=== PATIENT | female | born 1950 | race Caucasian/White ===

== ENCOUNTER 2018-09-07 15:00 | Inpatient (IN) | payer OTHER ==
[~2018-09-07] VITALS: Ht 154.9 cm; Wt 89.4 kg
[2018-09-07 15:08] VITALS: BP 135/85
--- NOTE | 2018-09-07 15:13 | NUR ---
TO LOBBY A/W BED VIA WC, MOE NOTED
--- NOTE | 2018-09-07 15:51 | NUR ---
PATIENT CAME IN ON WHEELCHAIR TO BED 6
--- NOTE | 2018-09-07 16:35 | NUR ---
PATIENT PRESENTS TO ED WITH BROUGHT IN BY FAMILY C/O NAUSEA, HEADACHE, DIZZINESS X YESTERDAY UNABLE TO VOID SINCE THIS AM FULL CLEAR SPEECH, NO FACIAL ASYMMETRY, MOVING ALL EXTREMITIES EQUALLY . SKIN IS PINK/WARM/DRY; AAOX4 WITH EVEN AND STEADY GAIT; LUNGS CLEAR BL; HR EVEN AND REGULAR; ; PATIENT STATES PAIN OF 0/10 AT THIS TIME; VSS; PATIENT POSITIONED FOR COMFORT; HOB ELEVATED; BEDRAILS UP X2; BED DOWN. ER MD MADE AWARE OF PT STATUS.
[2018-09-07] MEDS ORDERED: NACL 0.9% 1,000 ML IV ONE (16:50)
[2018-09-07] MEDS ORDERED: ONDANSETRON 4 MG/2 ML VIAL IVP ONE (16:50)
[2018-09-07] MEDS ORDERED: MECLIZINE 25 MG TAB PO ONE (16:50)
[2018-09-07] MEDS ORDERED: NACL 0.9% 1,000 ML IV SCH (16:50)
[2018-09-07] MEDS ORDERED: FAMOTIDINE 20 MG/2 ML VIAL IVP ONE (16:50)
--- NOTE | 2018-09-07 16:58 | NUR ---
PT TO CT VIA [facility]
[2018-09-07 17:28] LABS: BASOPHILS % (AUTO) 0.4 % (0.0-2.0); EOSINOPHILS % (AUTO) 0.3 % (0.0-4.0); HEMATOCRIT 39.1 % (36-48); HEMOGLOBIN 12.8 g/dL (12.0-16.0); LYMPHOCYTES # (AUTO) 0.5 K/uL (2.5-16.5); LYMPHOCYTES % (AUTO) 4.7 % (20.5-51.1); MEAN CORPUSCULAR HEMOGLOBIN 29 pg (27-31); MEAN CORPUSCULAR HGB CONC 33 g/dL (33-37); MEAN CORPUSCULAR VOLUME 89.4 fL (80-94); MONOCYTES # (AUTO) 0.3 K/uL (0.8-1.0); MONOCYTES % (AUTO) 2.3 % (1.7-9.3); NEUTROPHILS % (AUTO) 92.3 % (42.2-75.2); PLATELET COUNT (AUTO) 281 K/uL (140-450); RED BLOOD CELL COUNT(AUTO) 4.38 MIL/uL (4.20-5.40); WHITE BLOOD COUNT (AUTO) 10.9 K/uL (4.8-10.8)
[2018-09-07 17:39] LABS: ANION GAP 4.4 (8-16); CARBON DIOXIDE 30.9 mmol/L (21-32); CREATININE 0.8 mg/dL (0.6-1.3); POTASSIUM 4.3 mmol/L (3.5-5.1)
[2018-09-07 17:45] LABS: ALBUMIN 3.7 g/dL (3.4-5.0); TOTAL BILIRUBIN 0.3 mg/dL (0.0-1.0)
[2018-09-07 17:53] LABS: PROTHROMBIN TIME 9.9 secs (10.8-13.4)
--- NOTE | 2018-09-07 18:18 | NUR ---
BEDSIDE ULTRASOUND COMPLETED
[2018-09-07 18:51] LABS: APPEARANCE,URINE CLEAR (CLEAR); BILIRUBIN,URINE NEGATIVE (NEGATIVE); BLOOD, URINE NEGATIVE (NEGATIVE); COLOR,URINE YELLOW (YELLOW); LEUKOCYTE ESTERASE ,URINE 1+ (NEGATIVE); NITRITE, URINE NEGATIVE (NEGATIVE); UGLUCOSE NEGATIVE (NEGATIVE)
[2018-09-07 18:57] LABS: RBC,URINE 0-5 (RARE) /HPF (0-5); WBC,URINE 6-15 (FEW) /HPF (0-5)
[2018-09-07] MEDS ORDERED: PIPERACILLIN/TAZOBACTAM 3.375 GM in DEXTROSE 5% 50 ML IV ONE (19:05)
[2018-09-07] MEDS ORDERED: PIPERACILLIN/TAZOBACTAM 3.375 GM VIAL IV ONE (19:14)
[2018-09-07] MEDS ORDERED: MORPHINE SULFATE 2 MG/ML SYR IVP PRN (19:35)
[2018-09-07] MEDS ORDERED: DOCUSATE SODIUM 100 MG GELCAP PO PRN (19:35)
[2018-09-07] MEDS ORDERED: LORazepam 2 MG/ML VIAL IM/IVP PRN (19:35)
[2018-09-07] MEDS ORDERED: ACETAMINOPHEN 325 MG TAB PO PRN (19:35)
--- NOTE | 2018-09-07 19:39 | NUR ---
LAB AT BEDSIDE
[2018-09-07 20:00] VITALS: BP 122/66
[2018-09-07 20:00] LABS: ACETONE, SERUM NEGATIVE (NEGATIVE)
--- NOTE | 2018-09-07 20:00 | NUR ---
REPORT RECEIVED FROM ED NURSE AT BEDSIDE. PT IN STABLE CONDITION. AAOX4. INTRODUCED SELF TO FAMILY. NO COMPLAINTS OF PAIN. NO SOB. AFEBRILE. IV SITE L AC RUNNING NS@100ML/HR PATENT AND INTACT. SKIN WARM, DRY, AND INTACT WITH NO OPEN WOUNDS BUT MULTIPLE BRUISING ON HER BACK AND BACK OF THE L ARM. BED LOCKED IN LOW POSITION. CALL WILLIS WITHIN REACH. SAFETY PRECAUTIONS IN PLACE.
--- NOTE | 2018-09-07 20:00 | NUR ---
Patient will be admitted to care of DR THOMPSON. Admited to TELE. Will go to room 121-A. Belongings list completed. Report to SOPHIE CROW.
[2018-09-07 20:07] LABS: MAGNESIUM 1.9 mg/dL (1.8-2.4)
[2018-09-07 20:14] LABS: PROTHROMBIN TIME 9.6 secs (10.8-13.4)
[2018-09-07 20:37] LABS: BARBITURATE, URINE NEG. ng/ml (NEG <=200); BENZODIAZEPINE, URINE NEG. ng/mL (NEG <=200); CANNABINOID, URINE NEG. ng/mL (NEG <=50); COCAINE, URINE NEG. ng/mL (NEG <=300); OPIATE, URINE NEG. ng/mL (NEG <=2000); PHENCYCLIDINE SCREEN,URINE NEG. ng/mL (NEG <=25)
[2018-09-07 21:01] LABS: PHOSPHORUS 3.1 mg/dL (2.5-4.9); THYROID STIMULATING HORMONE 0.58 uIU/mL (0.34-3.74)
[2018-09-07] MEDS ORDERED: MECLIZINE 25 MG TAB PO PRN (21:15)
[2018-09-07] MEDS ORDERED: FURO-572 PO (21:20)
[2018-09-07] MEDS ORDERED: SINE25 PO (21:20)
[2018-09-07] MEDS ORDERED: HYDR-3293 PO (21:20)
[2018-09-07] MEDS ORDERED: LEVO0.1331 PO (21:20)
[2018-09-07] MEDS ORDERED: TRAM50TA1 PO (21:20)
[2018-09-07] MEDS ORDERED: VENL225T PO (21:20)
[2018-09-07] MEDS ORDERED: cefTRIAXone 1,000 MG VIAL ONE (21:48)
[2018-09-07] MEDS: NACL 0.9% 1,000 ML IV SCH (22:10)
--- NOTE | 2018-09-07 22:10 | NUR ---
[facility]INMA[facility] ROBERT AND RUNNING.
[2018-09-07] MEDS: HYDROcodone/APAP 5/325 MG 1 TAB TAB PO PRN (22:15)
[2018-09-07] MEDS: ONDANSETRON 4 MG/2 ML VIAL IM/IVP PRN (22:15)
--- NOTE | 2018-09-07 22:15 | NUR ---
ZOFRAN GIVEN IVP. NORCO GIVEN FOR 6/10 PAIN AND COLACE GIVEN PO. PT TOLERATED WELL.
[2018-09-08] VITALS: BP 107/82
--- NOTE | 2018-09-08 | NUR ---
VS STABLE. PT AWAKE TO AMBULATE WITH ASSIST TO THE RESTROOM.
--- NOTE | 2018-09-08 00:10 | NUR ---
ORTHOSTATIC BLOOD PRESSURES 103/88 STANDING. 108/74 SITTING. 104/65 LAYING.
--- NOTE | 2018-09-08 01:45 | NUR ---
PT SLEEPING COMFORTABLY SUPINE. NO S/S OF DISTRESS NOTED. WILL CONTINUE TO MONITOR.
--- NOTE | 2018-09-08 03:00 | NUR ---
PT SLEEPING COMFORTABLY. NO S/S OF DISTRESS NOTED. WILL CONTINUE TO MONITOR.
[2018-09-08 04:00] VITALS: BP 138/78
--- NOTE | 2018-09-08 04:30 | NUR ---
PT SLEEPING COMFORTABLY BUT AROUSABLE. NO S/S OF DISTRESS NOTED. NO COMPLAINTS OF PAIN. NO SOB. AFEBRILE. WILL CONTINUE TO MONITOR.
[2018-09-08] MEDS: NACL 0.9% 1,000 ML IV SCH ×3 (05:31→21:00)
[2018-09-08] MEDS: LEVOTHYROXINE 0.112 MG, LEVOTHYROXINE 0.025 MG PO SCH ×2 (06:34)
--- NOTE | 2018-09-08 06:34 | NUR ---
SYNTHROID GIVEN PO. PT TOLERATED WELL.
--- NOTE | 2018-09-08 07:15 | NUR ---
REPORT GIVEN TO AM NURSE AT BEDSIDE. PT IN STABLE CONDITION.
[2018-09-08 07:24] LABS: BASOPHILS % (AUTO) 0.4 % (0.0-2.0); EOSINOPHILS # (AUTO) 0.2 K/uL (0-0.4); EOSINOPHILS % (AUTO) 3.3 % (0.0-4.0); HEMATOCRIT 36.2 % (36-48); HEMOGLOBIN 11.9 g/dL (12.0-16.0); LYMPHOCYTES # (AUTO) 1.3 K/uL (2.5-16.5); LYMPHOCYTES % (AUTO) 20.8 % (20.5-51.1); MEAN CORPUSCULAR HEMOGLOBIN 30 pg (27-31); MEAN CORPUSCULAR HGB CONC 33 g/dL (33-37); MEAN CORPUSCULAR VOLUME 90.1 fL (80-94); MONOCYTES # (AUTO) 0.4 K/uL (0.8-1.0); NEUTROPHILS # (AUTO) 4.4 K/uL (1.8-7.7); NEUTROPHILS % (AUTO) 68.5 % (42.2-75.2); PLATELET COUNT (AUTO) 270 K/uL (140-450); RED BLOOD CELL COUNT(AUTO) 4.02 MIL/uL (4.20-5.40); RED CELL DISTRIBUTION WIDTH 15.4 % (11.6-13.7); WHITE BLOOD COUNT (AUTO) 6.4 K/uL (4.8-10.8)
--- NOTE | 2018-09-08 07:25 | NUR ---
RECEIVED PT REPORT FROM BOX PRESS OPERATOR NURSE. PT IS ASLEEP, NO S/S OF DISTRESS OR SOB. PT IS ON ROOM AIR, SKIN IS INTACT, BUT HAS MULTIPLE BRUISES AND BACK AND LUE DUE TO FALLS AT HOME. IV SITE NOTED ON LAC, 20 G, INFUSING NS 100 ML/HR. FALL PRECAUTIONS IN PLACE. CALL LIGHT WITHIN REACH. WILL CONTINUE TO MONITOR PT.
[2018-09-08 08:00] VITALS: BP 128/66
--- NOTE | 2018-09-08 08:08 | NUR ---
PATIENT HAS BEEN SCREENED AND CATEGORIZED MODERATE NUTRITION RISK. PATIENT WILL BE SEEN WITHIN 3-5 DAYS OF ADMISSION. 09/10/18[address]
[2018-09-08 08:15] LABS: ANION GAP 8.6 (8-16); CARBON DIOXIDE 27.7 mmol/L (21-32); CREATININE 0.6 mg/dL (0.6-1.3); POTASSIUM 4.3 mmol/L (3.5-5.1)
[2018-09-08 08:22] LABS: MAGNESIUM 2.1 mg/dL (1.8-2.4); PHOSPHORUS 3.6 mg/dL (2.5-4.9)
[2018-09-08 08:29] LABS: CHOL/HDL RATIO 2.7 (1-4.5)
[2018-09-08] MEDS ORDERED: NON-FORMULARY ITEM (Losartan/Hydrochlorothiazide (Losartan-Hctz 50-12.5 mg Tab) 1 TAB) PO SCH (09:00)
[2018-09-08] MEDS ORDERED: NON-FORMULARY ITEM (Levothyroxine Sodium* (Synthroid*) 0.137 MG) PO SCH (09:00)
[2018-09-08] MEDS ORDERED: VENLAFAXINE HCL PO SCH (09:00)
[2018-09-08] MEDS: FUROSEMIDE 20 MG TAB PO SCH (09:00)
[2018-09-08] MEDS: LOSARTAN 50 MG TAB PO SCH (10:05)
[2018-09-08] MEDS: HYDROCHLOROTHIAZIDE 25 MG TAB PO SCH (10:06)
[2018-09-08] MEDS: LACTOBACILLUS RHAMNOSUS GG 1 EACH CAP PO SCH (10:06)
[2018-09-08 12:00] VITALS: BP 132/74
[2018-09-08 16:00] VITALS: BP 112/80
[2018-09-08 16:15] LABS: ANION GAP 7.1 (8-16); CARBON DIOXIDE 26.9 mmol/L (21-32); CREATININE 0.9 mg/dL (0.6-1.3)
--- NOTE | 2018-09-08 16:54 | NUR ---
PT VISITING WITH HER . NO S/S OF ACUTE DISTRESS OR SOB. NO C/O PAIN. CALL LIGHT WITHIN REACH.
[2018-09-08] MEDS ORDERED: VENLAFAXINE XR 75 MG CAPER PO SCH (18:30)
[2018-09-08] MEDS ORDERED: SODIUM CHLORIDE 1 GM TAB PO SCH (18:30)
--- NOTE | 2018-09-08 19:20 | NUR ---
PT ENDORSED IN STABLE CONDITION
--- NOTE | 2018-09-08 19:21 | NUR ---
REPORT RECEIVED FROM AM NURSE AT BEDSIDE. PT IN STABLE CONDITION. AAOX4. INTRODUCED SELF TO PT. BOARD UPDATED. NO COMPLAINTS OF PAIN. NO SOB. AFEBRILE. IV SITE L AC 20G RUNNING NS@100ML/HR PATENT AND INTACT. SKIN WARM, DRY, AND INTACT WITH NO OPEN WOUNDS BUT HAS MULTIPLE BRUISING FROM FALL AT [facility]. PT IS AMBULATORY. GENERALIZED WEAKNESS IS IMPROVING. BED LOCKED IN LOW POSITION. CALL WILLIS WITHIN REACH. SAFETY PRECAUTIONS IN PLACE.
[2018-09-08 20:00] VITALS: BP 131/107
--- NOTE | 2018-09-08 20:52 | NUR ---
DOXEPIN GIVEN PO. PT TOLERATED WELL.
[2018-09-08] MEDS ORDERED: DOXEPIN 25 MG CAP PO SCH (21:00)
[2018-09-08] MEDS ORDERED: VENLAFAXINE 37.5 MG TAB PO ONE (21:00)
--- NOTE | 2018-09-08 21:00 | NUR ---
PT IV IS LEAKING. L AC 20G D/C. WILL PLACE A NEW IV. CANNULA INTACT.
--- NOTE | 2018-09-08 21:30 | NUR ---
NEW IV PLACED L UPPER ARM 22G. 2 ATTEMPTS TAKEN. FLUSHES WELL.
--- NOTE | 2018-09-08 21:36 | NUR ---
[facility]INMA[facility] ROBERT AND RUNNING. PT TOLERATING WELL.
--- NOTE | 2018-09-08 23:00 | NUR ---
PT LAYING IN BED READING A BOOK. NO S/S OF DISTRESS NOTED. ALL NEEDS MET AT THIS TIME.
[2018-09-09] VITALS: BP 148/97
--- NOTE | 2018-09-09 00:15 | NUR ---
PT MOVED TO 119A FROM 121A DUE TO PT NEEDING ROOM FOR ISOLATION.
[2018-09-09] MEDS: HYDROcodone/APAP 5/325 MG 1 TAB TAB PO PRN ×2 (03:10→09:02)
--- NOTE | 2018-09-09 03:10 | NUR ---
NORCO GIVEN FOR 6/10 PAIN. PT TOLERATED WELL.
[2018-09-09 04:00] VITALS: BP 150/79
--- NOTE | 2018-09-09 05:00 | NUR ---
PT SLEEPING COMFORTABLY BUT AROUSABLE. NO S/S OF DISTRESS NOTED. RESPIRATIONS EVEN, UNLABORED, AND WNL. WILL CONTINUE TO MONITOR.
[2018-09-09 06:14] LABS: T4 (THYROXINE) 6.9 ug/dL (4.5-12.0)
[2018-09-09 06:16] LABS: BASOPHILS % (AUTO) 0.6 % (0.0-2.0); EOSINOPHILS # (AUTO) 0.3 K/uL (0-0.4); EOSINOPHILS % (AUTO) 4.6 % (0.0-4.0); HEMOGLOBIN 12.3 g/dL (12.0-16.0); LYMPHOCYTES # (AUTO) 1.6 K/uL (2.5-16.5); MEAN CORPUSCULAR HEMOGLOBIN 30 pg (27-31); MEAN CORPUSCULAR HGB CONC 33 g/dL (33-37); MEAN CORPUSCULAR VOLUME 89.7 fL (80-94); MONOCYTES # (AUTO) 0.4 K/uL (0.8-1.0); NEUTROPHILS # (AUTO) 3.5 K/uL (1.8-7.7); NEUTROPHILS % (AUTO) 59.8 % (42.2-75.2); PLATELET COUNT (AUTO) 279 K/uL (140-450); RED BLOOD CELL COUNT(AUTO) 4.12 MIL/uL (4.20-5.40); RED CELL DISTRIBUTION WIDTH 15.4 % (11.6-13.7); WHITE BLOOD COUNT (AUTO) 5.8 K/uL (4.8-10.8)
[2018-09-09] MEDS: LEVOTHYROXINE 0.112 MG, LEVOTHYROXINE 0.025 MG PO SCH ×2 (06:38)
--- NOTE | 2018-09-09 06:38 | NUR ---
SYNTHROID GIVEN PO. PT TOLERATED WELL.
[2018-09-09 07:20] LABS: ANION GAP 10.5 (8-16); CARBON DIOXIDE 27.9 mmol/L (21-32); CREATININE 0.8 mg/dL (0.6-1.3); POTASSIUM 4.4 mmol/L (3.5-5.1)
--- NOTE | 2018-09-09 07:20 | NUR ---
RECEIVED PT REPORT FROM CRM SPECIALIST NURSE, PT IS AWAKE AND ALERT, NO S/S OF DISTRESS. IV SITE NOTED ON [place], 22 G, INFUSING NS 100 ML/HR. SKIN IS INTACT. PT ON ROOM AIR. PT IS AMBULATORY. CALL LIGHT WITHIN REACH. WILL CONT TO MONITOR.
[2018-09-09 07:32] LABS: PHOSPHORUS 3.1 mg/dL (2.5-4.9)
[2018-09-09 08:00] VITALS: BP 144/92
[2018-09-09] MEDS: LOSARTAN 50 MG TAB PO SCH (08:56)
[2018-09-09] MEDS: LACTOBACILLUS RHAMNOSUS GG 1 EACH CAP PO SCH (08:57)
[2018-09-09] MEDS: FUROSEMIDE 20 MG TAB PO SCH (08:57)
[2018-09-09] MEDS: HYDROCHLOROTHIAZIDE 25 MG TAB PO SCH (08:58)
[2018-09-09] MEDS: ONDANSETRON 4 MG/2 ML VIAL IM/IVP PRN (09:48)
--- NOTE | 2018-09-09 10:00 | NUR ---
PT VISITING WITH FAMILY AT THIS TIME. NO S/S OF DISTRESS.
[2018-09-09] MEDS ORDERED: SODI100076 PO (10:55)
[2018-09-09] MEDS ORDERED: CEPH250C16 PO (10:55)
--- NOTE | 2018-09-09 13:50 | NUR ---
PT HAS DC'D. DC INSTRUCTIONS WERE GIVEN, PT AND FAMILY VERBALIZED UNDERSTANDING AND SIGNED DC DOCUMENTS. IV AND WRIST BANDS REMOVED. PT IS CURRENT ON HER FLU VACCINE (MAY 2018). PT WILL ABLE BODIED WATCHMAN HER PRESCRIPTIONS AT HER PHARMACY SENT BY ELECTRONICALLY. DC PHOTOS TAKEN. PT LEFT WITH ALL HER BELONGINGS IN STABLE CONDITION WITH .
[2018-09-09] MEDS ORDERED: VENLAFAXINE XR 75 MG CAPER PO SCH (21:00)
[2018-09-10] MEDS ORDERED: SODIUM CHLORIDE 1 GM TAB PO SCH (09:00)
== END 2018-09-09 13:50 | disposition home or self-care (01) | DRG 74 ==
LOC: MED 15:00 → MTU 19:31
PROVIDERS: ADMIT General Practice; ATTEND General Practice
DX: G90.8 Other disorders of autonomic nervous system (principal); N39.0 Urinary tract infection, site not specified; E87.1 Hypo-osmolality and hyponatremia; I10 Essential (primary) hypertension; E03.9 Hypothyroidism, unspecified; E66.9 Obesity, unspecified; Z68.37 Body mass index [BMI] 37.0-37.9, adult; Z71.3 Dietary counseling and surveillance; F32.9 Major depressive disorder, single episode, unspecified; Z85.42 Personal history of malignant neoplasm of other parts of uterus; F41.9 Anxiety disorder, unspecified; G47.33 Obstructive sleep apnea (adult) (pediatric); R26.81 Unsteadiness on feet
CPT/HCPCS: 36415; 70450; 71045; 80048; 80053; 80305; 81001; 82009; 82140; 82150; 83036; 83605; 83690; 83735; 83880; 84100; 84436; 84443; 84484; 85025; 85610; 85730; 87040; 87081; 87086; 93005; 93880; 96365; 96367; 96375; 99285; C1758; G0482; J0696; J2405; J2543; J3490; J7030; J7060; J8597; Q0092